=== PATIENT | male | born 1980 | race African-American/Black ===

== ENCOUNTER 2019-06-14 09:49 | Emergency (ER) | payer BC ==
[2019-06-14 10:05] VITALS: TEMP 98; BMI 38.2
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
[2019-06-14] MEDS ORDERED: ASPIRIN 81 MG CHEWABLE TABLETS PO ONE (10:38)
[2019-06-14] MEDS ORDERED: ASPIRIN 81 MG CHEWABLE TABLETS ONE (11:06)
[2019-06-14 11:31] LABS: BASO % 0.8 % (0-2.0); EOS % 6.7 % (0-4.5); HEMATOCRIT 39.3 % (35.4-49); HEMOGLOBIN 12.4 GM/dL (11.7-16.9); LYMPH % 32.6 % (8-40); MCH 23.2 pg (25.7-33.7); MCHC 31.4 g/dl (32.0-35.9); MEAN PLT VOLUME 8.4 fl (7.5-11.1); MONO % 5.8 % (3.8-10.2); NEUT % 54.1 % (42.8-82.8); PLATELET COUNT 291 K/MM3 (134-434); RBC 5.32 M/mm3 (4.00-5.60); RDW 13.4 % (11.9-15.9); WHITE BLOOD COUNT 6.7 K/mm3 (4.0-10.0)
[2019-06-14 12:05] LABS: ALBUMIN 3.8 g/dl (3.4-5.0); BILIRUBIN,TOTAL 0.6 mg/dL (0.2-1); CALCIUM 9.5 mg/dL (8.5-10.1); MAGNESIUM 2.1 mg/dL (1.8-2.4); TOT PROT 7.1 g/dl (6.4-8.2)
--- NOTE | 2019-06-14 13:21 | EKG ---
Test Reason : Blood Pressure : / mmHG Vent. Rate : 061 BPM Atrial Rate : 061 BPM P-R Int : 192 ms QRS Dur : 086 ms QT Int : 390 ms P-R-T Axes : 063 070 035 degrees QTc Int : 392 ms NORMAL SINUS RHYTHM WITH SINUS ARRHYTHMIA NORMAL ECG NO PREVIOUS ECGS AVAILABLE Confirmed by Bacilio Alvarado ([id number]) on 06/14/2019 1:21:07 PM Referred By: Confirmed By:Bacilio Alvarado
[2019-06-14 15:28] VITALS: BP 137/74; PULSE 74
== END 2019-06-14 15:27 | disposition home or self-care (01) ==
LOC: JER 09:49
DX: R07.9 Chest pain, unspecified (principal); J45.909 Unspecified asthma, uncomplicated; Z91.013 Allergy to seafood
CPT/HCPCS: 36415; 71045-TC-FY; 80053; 82550; 82553; 83735; 84484; 85025; 85379; 93005; 93010; 99284-25